=== PATIENT | female | born 1955 | race Hispanic/Latino ===

== ENCOUNTER 2021-02-11 05:28 | Day surgery (SDC) | payer MEDICARE ==
[2021-02-10 15:29] LABS: BASOPHILS % (AUTO) 0.8 % (0.0-5.0); EOSINOPHILS % (AUTO) 1.1 % (0.0-8.0); HEMATOCRIT 41.3 % (36-48); LYMPHOCYTES % (AUTO) 33.4 % (21.0-51.0); MEAN CORPUSCULAR HEMOGLOBIN 29.4 pg (27.0-33.0); MEAN CORPUSCULAR HGB CONC 33.9 g/dL (32.0-36.0); MEAN CORPUSCULAR VOLUME 86.6 fL (79-99); MONOCYTES % (AUTO) 6.9 % (3.0-13.0); NEUTROPHILS % (AUTO) 57.4 % (40.0-77.0); PLATELET COUNT (AUTO) 318 K/uL (130-400); RED BLOOD CELL COUNT(AUTO) 4.77 MIL/uL (4.00-5.50); RED CELL DISTRIBUTION WIDTH 13.2 % (11.0-15.5); WHITE BLOOD COUNT (AUTO) 9.1 K/uL (4.8-10.8)
[2021-02-10 15:37] LABS: CREATININE 1.1 mg/dL (0.5-1.5); POTASSIUM 3.8 mmol/L (3.5-5.1)
[2021-02-10 16:25] VITALS: BP 150/77
[2021-02-11] VITALS (16 sets, daily range): BP systolic 104–162; BP diastolic 51–76
[~2021-02-11] VITALS: Ht 157.5 cm; Wt 64.0 kg
[~2021-02-11 05:28] MED LIST: ALBU0.63 IH; LOVA20TA3 PO; MECL-160 PO; MONT10TA32 PO; MV-M1TAB20 PO; OMEG-148 PO
[2021-02-11] MEDS ORDERED: LACTATED RINGERS 1000ML 1,000 ML IV ONE (05:41)
[2021-02-11] MEDS ORDERED: MIDAZOLAM HCL 1 MG/ML 2ML VIAL ONE ×2 (06:51→06:52)
[2021-02-11] MEDS ORDERED: FENTANYL CITRATE PF 50 MCG/1 ML 2ML VIAL ONE (06:59)
[2021-02-11] MEDS ORDERED: PROPOFOL 10 MG/ML 20ML VIAL IV ONE (06:59)
[2021-02-11] MEDS ORDERED: LIDOCAINE HCL MPF 1% 5ML VIAL ONE (06:59)
[2021-02-11] MEDS ORDERED: SUCCINYLCHOLINE 200MG/10ML SYR ONE (06:59)
[2021-02-11] MEDS ORDERED: ROCURONIUM 10MG/1ML SYR 10 MG/ML ML ONE (07:01)
[2021-02-11] MEDS ORDERED: BACITRACIN 28.4 GM OINT TP ONE (07:44)
[2021-02-11] MEDS ORDERED: LACTATED RINGERS 1000ML 1,000 ML IV SCH (08:00)
[2021-02-11] MEDS ORDERED: IPRATROPIUM/ALBUTEROL SULFATE 3 ML SOLUTION IH ONE (08:37)
== END 2021-02-11 09:35 | disposition home or self-care (01) ==
LOC: DAH 05:28
PROVIDERS: ATTEND Obstetrics & Gynecology
DX: N95.0 Postmenopausal bleeding (principal); Z20.822 Contact with and (suspected) exposure to COVID-19; N84.0 Polyp of corpus uteri; N36.2 Urethral caruncle; N95.8 Other specified menopausal and perimenopausal disorders; F41.9 Anxiety disorder, unspecified; J45.909 Unspecified asthma, uncomplicated; E78.5 Hyperlipidemia, unspecified; Z98.51 Tubal ligation status; Z90.49 Acquired absence of other specified parts of digestive tract; Z82.49 Family history of ischemic heart disease and other diseases of the circulatory system; Z80.3 Family history of malignant neoplasm of breast; Z79.899 Other long term (current) drug therapy; Z80.8 Family history of malignant neoplasm of other organs or systems
CPT/HCPCS: 36415; 53265; 58558; 80048; 85025; 86850; 86900; 86901; 87635; 94640; A4215; A4221; A4222; A4223; A4335 ×2; A4351; A4355; C9803; J0330; J2250 ×2; J2704; J3010; J3490; J7030; J7120 ×2

== ENCOUNTER 2021-08-19 05:51 | Observation (INO) | payer MEDICARE ==
[2021-08-18 12:14] LABS: BASOPHILS % (AUTO) 0.5 % (0.0-5.0); EOSINOPHILS % (AUTO) 0.5 % (0.0-8.0); HEMATOCRIT 40.8 % (36-48); LYMPHOCYTES % (AUTO) 22.4 % (21.0-51.0); MEAN CORPUSCULAR HEMOGLOBIN 30.9 pg (27.0-33.0); MEAN CORPUSCULAR HGB CONC 35.3 g/dL (32.0-36.0); MEAN CORPUSCULAR VOLUME 87.6 fL (79-99); MONOCYTES % (AUTO) 4.7 % (3.0-13.0); NEUTROPHILS % (AUTO) 71.5 % (40.0-77.0); PLATELET COUNT (AUTO) 334 K/uL (130-400); RED BLOOD CELL COUNT(AUTO) 4.66 MIL/uL (4.00-5.50); RED CELL DISTRIBUTION WIDTH 13.2 % (11.0-15.5)
[2021-08-18] MEDS: CEFAZOLIN SODIUM 1 GM VIAL IVP SCH (12:30)
[2021-08-18 13:14] VITALS: BP 148/73
[2021-08-19] VITALS (24 sets, daily range): BP systolic 107–137; BP diastolic 51–70
[~2021-08-19] VITALS: Ht 157.5 cm; Wt 64.0 kg
[~2021-08-19 05:51] MED LIST changes: -ALBU0.63 IH; +ALBU90AE IH; +MONT-39 PO; -MONT10TA32 PO; +SYMB8060 IH; +VITA1CAP85 PO
[2021-08-19 06:37] LABS: CREATININE 1.1 mg/dL (0.5-1.5); POTASSIUM 3.5 mmol/L (3.5-5.1)
[2021-08-19] MEDS ORDERED: LACTATED RINGERS 1000ML 1,000 ML IV ONE (06:42)
[2021-08-19] MEDS ORDERED: SUCCINYLCHOLINE 200MG/10ML SYR ONE (08:11)
[2021-08-19] MEDS ORDERED: PROPOFOL 10 MG/ML 20ML VIAL IV ONE (08:11)
[2021-08-19] MEDS ORDERED: LIDOCAINE PF 100MG/5ML (2%) SYRINGE 5ML ONE (08:11)
[2021-08-19] MEDS ORDERED: FENTANYL CITRATE PF 50 MCG/1 ML 2ML VIAL ONE (08:12)
[2021-08-19] MEDS ORDERED: MIDAZOLAM HCL 1 MG/ML 2ML VIAL ONE (08:12)
[2021-08-19] MEDS ORDERED: ROCURONIUM 10MG/1ML SYR 10 MG/ML ML ONE (08:19)
[2021-08-19] MEDS ORDERED: GLYCOPYRROLATE 1 MG/5 ML SYRINGE ONE (08:30)
[2021-08-19] MEDS ORDERED: DEXAMETHASONE SOD PHOSPHATE 10MG/ML 1ML VIAL ONE (08:30)
[2021-08-19] MEDS ORDERED: NEOSTIGMINE 5MG/5ML SYR IV ONE (08:31)
[2021-08-19] MEDS: CEFAZOLIN SODIUM 1 GM VIAL IVP SCH (08:31)
[2021-08-19] MEDS ORDERED: ONDANSETRON 4MG INJ ONE (08:31)
[2021-08-19] MEDS ORDERED: EPHEDRINE SULFATE 50 MG/ML AMPULE ONE (09:00)
[2021-08-19] MEDS: DEXTROSE 5 %-0.45 % NACL 1,000 ML IV PRN ×2 (11:26→19:54)
[2021-08-19] MEDS: MEPERIDINE-PF 75 MG/ML SYG IM PRN ×2 (11:30→20:16)
[2021-08-19] MEDS: PROMETHAZINE HCL 25 MG/ML 1ML AMPULE IM PRN ×2 (11:30→20:16)
[2021-08-19] MEDS ORDERED: PROMETHAZINE HCL 25 MG/ML 1ML AMPULE IM PRN (11:30)
[2021-08-19] MEDS ORDERED: ONDANSETRON 4MG INJ IVP PRN (11:30)
[2021-08-19] MEDS ORDERED: BISACODYL 10 MG SUPP.RECT RC PRN (11:30)
[2021-08-19] MEDS ORDERED: IBUPROFEN 600 MG TABLET PO PRN (11:30)
[2021-08-19] MEDS ORDERED: ACETAMINOPHEN WITH CODEINE 1 TAB TAB PO PRN (11:30)
[2021-08-19] MEDS: SIMETHICONE 80 MG TAB.CHEW PO PRN (20:16)
[2021-08-19] MEDS: DOCUSATE SODIUM 100 MG CAP PO PRN (20:16)
[2021-08-20 03:19] VITALS: BP 128/61
[2021-08-20] MEDS: DEXTROSE 5 %-0.45 % NACL 1,000 ML IV PRN (04:00)
[2021-08-20] MEDS ORDERED: HYDROCODONE/ACETAMINOPHEN 5/325 MG TAB PO PRN (05:30)
[2021-08-20 05:51] LABS: HEMATOCRIT 34.9 % (36-48); MEAN CORPUSCULAR HEMOGLOBIN 30.6 pg (27.0-33.0); MEAN CORPUSCULAR HGB CONC 33.8 g/dL (32.0-36.0); MEAN CORPUSCULAR VOLUME 90.6 fL (79-99); RED BLOOD CELL COUNT(AUTO) 3.85 MIL/uL (4.00-5.50); RED CELL DISTRIBUTION WIDTH 13.2 % (11.0-15.5); WHITE BLOOD COUNT (AUTO) 19.1 K/uL (4.8-10.8)
[2021-08-20 07:13] VITALS: BP 135/60
[2021-08-20] MEDS: SIMETHICONE 80 MG TAB.CHEW PO PRN (08:07)
[2021-08-20] MEDS: DOCUSATE SODIUM 100 MG CAP PO PRN (08:07)
[2021-08-20] MEDS: IBUPROFEN 800 MG TAB PO PRN (08:08)
[2021-08-20 11:21] VITALS: BP 135/62
[2021-08-20 16:36] VITALS: BP 134/56
[2021-08-20 19:24] VITALS: BP 114/65
[2021-08-20 23:02] VITALS: BP 143/77
[2021-08-21 03:10] VITALS: BP 139/78
[2021-08-21] MEDS: IBUPROFEN 800 MG TAB PO PRN (06:11)
[2021-08-21 07:05] VITALS: BP 115/72
[2021-08-21] MEDS: DOCUSATE SODIUM 100 MG CAP PO PRN (08:37)
[2021-08-21] MEDS: SIMETHICONE 80 MG TAB.CHEW PO PRN (08:37)
[2021-08-21 11:25] VITALS: BP 132/76
== END 2021-08-21 13:20 | disposition home or self-care (01) ==
LOC: DAH 05:51 → DAHIP 05:52 → DAH 05:52 → WSH 10:55
PROVIDERS: ADMIT Obstetrics & Gynecology; ATTEND Obstetrics & Gynecology
DX: N95.0 Postmenopausal bleeding (principal); Z20.822 Contact with and (suspected) exposure to COVID-19; N81.2 Incomplete uterovaginal prolapse; R68.89 Other general symptoms and signs; N81.4 Uterovaginal prolapse, unspecified; K46.9 Unspecified abdominal hernia without obstruction or gangrene; J45.909 Unspecified asthma, uncomplicated; E78.5 Hyperlipidemia, unspecified; Z90.49 Acquired absence of other specified parts of digestive tract; Z98.51 Tubal ligation status; Z79.899 Other long term (current) drug therapy; Z98.890 Other specified postprocedural states
CPT/HCPCS: 36415 ×3; 58263; 80048; 85025; 85027; 86850; 86900; 86901; 87635; 93005; 96372; A4215; A4216; A4221; A4222; A4223; A4344; A4351; A4600; A4606; A4663; A6260; C9803; G0378 ×50; J0330; J0690; J1100; J2001; J2175 ×2; J2250; J2405; J2550 ×2; J2704; J2710; J3010; J3490 ×2; J7120 ×2

== ENCOUNTER 2023-09-28 06:36 | Day surgery (SDC) | payer MEDICARE ==
[2023-09-24 14:55] LABS: BASOPHILS # (AUTO) 0.04 K/uL (0.00-0.20); BASOPHILS % (AUTO) 0.3 % (0.0-5.0); EOSINOPHILS # (AUTO) 0.05 K/uL (0.00-0.70); EOSINOPHILS % (AUTO) 0.3 % (0.0-8.0); HEMATOCRIT 38.6 % (36-48); IMMATURE GRANULOCYTE ABSOLUTE 0.08 K/uL (0-1); LYMPHOCYTES # (AUTO) 3.3 K/uL (1.0-4.8); LYMPHOCYTES % (AUTO) 22.6 % (21.0-51.0); MEAN CORPUSCULAR HEMOGLOBIN 29.9 pg (27.0-33.0); MEAN CORPUSCULAR HGB CONC 34.2 g/dL (32.0-36.0); MEAN CORPUSCULAR VOLUME 87.5 fL (79-99); MONOCYTES # (AUTO) 0.9 K/uL (0.1-1.0); MONOCYTES % (AUTO) 6.4 % (3.0-13.0); NEUTROPHILS # (AUTO) 10.3 K/uL (1.8-7.7); NEUTROPHILS % (AUTO) 69.9 % (40.0-77.0); PLATELET COUNT (AUTO) 280 K/uL (130-400); RED BLOOD CELL COUNT(AUTO) 4.41 MIL/uL (4.00-5.50); RED CELL DISTRIBUTION WIDTH 13.9 % (11.0-15.5); WHITE BLOOD COUNT (AUTO) 14.7 K/uL (4.8-10.8)
[2023-09-24 15:04] VITALS: BP 154/72; PULSE 65; RESP 15
[2023-09-24 15:05] LABS: INR < 0.93 (0.85-1.15); PROTHROMBIN TIME 10.3 SEC (9.6-11.6)
[2023-09-24 15:07] LABS: PARTIAL THROMBOPLASTIN TIME 23.2 SEC (26.3-35.5)
[2023-09-24 15:10] LABS: ALBUMIN 3.3 g/dL (3.5-5.0); BILIRUBIN,TOTAL 0.3 mg/dL (0.2-1.0); CREATININE 1.4 mg/dL (0.5-1.5); POTASSIUM 4.1 mmol/L (3.5-5.1); TOTAL PROTEIN, SERUM 6.9 g/dL (6.0-8.3)
[~2023-09-28] VITALS: Ht 157.5 cm; Wt 63.5 kg
[2023-09-28] VITALS (19 sets, daily range): BP systolic 79–132; BP diastolic 41–79; PULSE 58–96; RESP 15–21
[~2023-09-28 06:36] MED LIST changes: -ALBU90AE IH; +ALEN70TA80 PO; +BUDE10.26 IH; +GABA300C PO; +IPRAHFA IH; -LOVA20TA3 PO; -MECL-160 PO; +MECL-302 PO; -MV-M1TAB20 PO; -OMEG-148 PO; +OMEP40CA21 PO; +ROSU20TA73 PO; -SYMB8060 IH; -VITA1CAP85 PO
[2023-09-28 06:52] LABS: BASOPHILS # (AUTO) 0.06 K/uL (0.00-0.20); BASOPHILS % (AUTO) 0.5 % (0.0-5.0); EOSINOPHILS # (AUTO) 0.08 K/uL (0.00-0.70); EOSINOPHILS % (AUTO) 0.7 % (0.0-8.0); HEMATOCRIT 40.7 % (36-48); IMMATURE GRANULOCYTE ABSOLUTE 0.07 K/uL (0-1); LYMPHOCYTES % (AUTO) 17.4 % (21.0-51.0); MEAN CORPUSCULAR HEMOGLOBIN 30.7 pg (27.0-33.0); MEAN CORPUSCULAR HGB CONC 34.4 g/dL (32.0-36.0); MEAN CORPUSCULAR VOLUME 89.3 fL (79-99); MONOCYTES # (AUTO) 0.9 K/uL (0.1-1.0); NEUTROPHILS # (AUTO) 8.1 K/uL (1.8-7.7); NEUTROPHILS % (AUTO) 72.8 % (40.0-77.0); PLATELET COUNT (AUTO) 232 K/uL (130-400); RED BLOOD CELL COUNT(AUTO) 4.56 MIL/uL (4.00-5.50); WHITE BLOOD COUNT (AUTO) 11.2 K/uL (4.8-10.8)
[2023-09-28] MEDS ORDERED: MEROPENEM 1 GM VIAL ONE (06:52)
[2023-09-28] MEDS ORDERED: LACTATED RINGERS 1000ML 1,000 ML IV ONE (06:52)
[2023-09-28] MEDS ORDERED: PROPOFOL 10 MG/ML 20ML VIAL IV ONE (07:11)
[2023-09-28] MEDS ORDERED: FENTANYL CITRATE PF 50 MCG/1 ML 2ML VIAL ONE (07:12)
[2023-09-28] MEDS ORDERED: ROCURONIUM BROMIDE 10MG/1ML 5ML VL ONE (07:12)
[2023-09-28] MEDS ORDERED: MIDAZOLAM HCL 1 MG/ML 2ML VIAL ONE (07:14)
[2023-09-28] MEDS ORDERED: ONDANSETRON 4MG INJ ONE ×2 (07:14→08:50)
[2023-09-28] MEDS ORDERED: BUPIVACAINE/PF 0.25% 30ML VIAL IJ ONE (08:03)
[2023-09-28] MEDS ORDERED: LIDOCAINE 1%-EPI 1:100,000 20 ML VIAL ONE (08:03)
[2023-09-28] MEDS ORDERED: GLYCOPYRROLATE 0.2 MG/ML 5 ML VIAL ONE (08:30)
[2023-09-28] MEDS ORDERED: MEPERIDINE-PF 25 MG/ML SYG ONE (08:50)
[2023-09-28] MEDS ORDERED: IPRATROPIUM/ALBUTEROL SULFATE 3 ML SOLUTION IH ONE ×2 (09:26→10:00)
== END 2023-09-28 12:35 | disposition home or self-care (01) ==
LOC: DAH 06:36
PROVIDERS: ATTEND Surgery
DX: K64.2 Third degree hemorrhoids (principal); K62.89 Other specified diseases of anus and rectum; K21.9 Gastro-esophageal reflux disease without esophagitis; J45.909 Unspecified asthma, uncomplicated; I10 Essential (primary) hypertension; M81.0 Age-related osteoporosis without current pathological fracture; Z86.73 Personal history of transient ischemic attack (TIA), and cerebral infarction without residual deficits; Z90.710 Acquired absence of both cervix and uterus; Z90.49 Acquired absence of other specified parts of digestive tract; Z86.010 Personal history of colon polyps; Z98.51 Tubal ligation status; Z98.890 Other specified postprocedural states; Z79.01 Long term (current) use of anticoagulants; Z79.899 Other long term (current) drug therapy
CPT/HCPCS: 80053; 85025 ×2; 85610; 85730; 36415 ×2; 93005; 45541; 46946; A6260; A4663; J7120 ×2; A4344; J3010; J3490 ×3; J0665; J2250; J2704; J2405 ×2; J2175; J2185; A4649; A4930; A4215; A4223; A4222; A4221

== ENCOUNTER → 2024-02-15 | Outpatient (CLI) | payer MEDICARE | END | disposition home or self-care (01) | LOC: SHCH 13:34 | PROVIDERS: ATTEND Internal Medicine Cardiovascular Disease | DX: I87.2 Venous insufficiency (chronic) (peripheral) (principal); R00.2 Palpitations; I87.1 Compression of vein; E78.5 Hyperlipidemia, unspecified; Z79.899 Other long term (current) drug therapy | CPT/HCPCS: 93970 ==

== ENCOUNTER → 2024-12-19 | Outpatient (CLI) | payer MEDICARE ==
[~2024-12-19] MED LIST changes: -ROSU20TA73 PO; +ROSU20TA98 PO
--- NOTE | 2024-12-19 11:17 | HMCSR ---
APPROVED REPORT Laterality: Bilateral Indications i73.9 VELOCITY AND DOPPLER WAVEFORM ANALYSIS LEVEL VIAL MARKER (R) 158.7cm/sec, Biphasic, LEVEL VIAL MARKER (L) 131.1cm/sec, Biphasic, Prof Fem Art. (R) 69.0cm/sec, Biphasic, Prof Fem Art. (L) 47.6cm/sec, Biphasic, Fem Art Prox. (R) 114.6cm/sec, Biphasic, Fem Art Prox. (L) 84.3cm/sec, Biphasic, Fem Art Mid. (R) 84.8cm/sec, Biphasic, Fem Art Mid. (L) 82.5cm/sec, Biphasic, Fem Art Dist (R) 82.4cm/sec, Biphasic, Fem Art Dist. (L) 66.9cm/sec, Biphasic, Pop Art(AK) (R) 62.8cm/sec, Biphasic, Pop Art (AK) (L) 83.4cm/sec, Biphasic, Pop Art (Fossa)(R) 64.4cm/sec, Biphasic, Pop Art (Fossa) (L) 81.6cm/sec, Biphasic, Pop Art(BK) (R) 103.0cm/sec, Biphasic, Pop Art (BK) (L) 80.8cm/sec, Biphasic, INDUSTRIAL PLANT CUSTODIAN Prox. (R) 86.8cm/sec, Biphasic, INDUSTRIAL [employer] CUSTODIAN Prox. (L) 67.7cm/sec, Biphasic, INDUSTRIAL [employer]ANT CUSTODIAN Mid. (R) 57.1cm/sec, Biphasic, INDUSTRIAL PLANT CUSTODIAN Mid. (L) 59.5cm/sec, Biphasic, INDUSTRIAL PLANT CUSTODIAN Dist. (R) 62.0cm/sec, Biphasic, INDUSTRIAL PLANT CUSTODIAN Dist. (L) 48.9cm/sec, Biphasic, Per Art Prox. (R) 42.4cm/sec, Biphasic, Per Art Prox. (L) 42.8cm/sec, Biphasic, Per Art Mid. (R) 41.6cm/sec, Biphasic, Per Art Mid. (L) 34.5cm/sec, Biphasic, Per Art Dist. (R) 47.3cm/sec, Biphasic, Per Art Dist. (L) 45.6cm/sec, Biphasic, ILSA Prox. (R) 99.6cm/sec, Biphasic, ILSA Prox. (L) 92.6cm/sec, Biphasic, ILSA Mid. (R) 77.6cm/sec, Biphasic ILSA Mid. (L) 59.0cm/sec, Biphasic, ILSA Dist. (R) 79.9cm/sec, Biphasic, ILAS Dist. (L) 72.9cm/sec, Biphasic, Technologist Impression No evidence of significant arterial insufficiency of bilateral lower extremities. Multiphasic waveforms in the bilateral lower extremities. Conclusion No evidence of significant arterial insufficiency of bilateral lower extremities. Conclusion No evidence of significant arterial insufficiency of bilateral lower extremities.
--- NOTE | 2024-12-19 11:18 | HMCSR ---
APPROVED REPORT Bilateral Lower Extremity Venous Study for DVT., Venous Competence. Indications i87.1,i87.2 Vein Imaging CFV (R): Normal flow, augmentation and compression. No evidence of DVT. 10.8mm 1000ms of reflux. SFJ (R): Normal flow, augmentation and compression. No evidence of DVT. FEM (R): Normal flow, augmentation and compression. No evidence of DVT. POP (R): Normal flow, augmentation and compression. No evidence of DVT. DFV (R): Normal flow, augmentation and compression. No evidence of DVT. PTV (R): Normal flow, augmentation and compression. No evidence of DVT. Peroneals (R): Normal flow, augmentation and compression. No evidence of DVT. CFV (L): STENT: Normal flow, augmentation and compression. No evidence of DVT. 12.6mm 1150ms of reflux. SFJ (L): Normal flow, augmentation and compression. No evidence of DVT. FEM (L): Normal flow, augmentation and compression. No evidence of DVT. POP (L): Normal flow, augmentation and compression. No evidence of DVT. DFV (L): Normal flow, augmentation and compression. No evidence of DVT. PTV (L): Normal flow, augmentation and compression. No evidence of DVT. Peroneals (L): Normal flow, augmentation and compression. No evidence of DVT. Technologist Impression Deep veins of the bilateral lower extremiteis appear patent and compressible without thrombus. Deep venous reflux >1.0 sec in the RCFV and LCFV. Superficial venous insufficiency > 0.5 sec in the LGSV. RGSV junction 5.5mm 250ms thigh 1.8mm 0.0ms knee 2.5mm 0.0ms calf 1.3mm 0.0ms RSSV prox 1.7mm 0.0ms mid 1.5mm 0.0ms LGSV junction 6.4mm 1575ms thigh 1.8mm 1783ms knee 2.7mm 0.0ms calf 1.6mm 0.0ms LSSV prox 2.7mm 0.0ms mid 2.0mm 0.0ms Conclusion Deep venous reflux >1.0 sec in the RCFV and LCFV. Superficial venous insufficiency > 0.5 sec in the LGSV. Findings consistent with possible iliac vein compression Consider formal venography with intravascular ultrasound if clinically indicated No DVT Conclusion Deep venous reflux >1.0 sec in the RCFV and LCFV. Superficial venous insufficiency > 0.5 sec in the LGSV. Findings consistent with possible iliac vein compression Consider formal venography with intravascular ultrasound if clinically indicated No DVT
--- NOTE | 2024-12-19 14:27 | HMCSR ---
APPROVED REPORT EXAM: Two-dimensional and M-mode echocardiogram with Doppler and color Doppler. INDICATION ICD: R01.1 Cardiac murmur, unspecified 2D Dimensions RVDd3.1 cmLVEF(%)54.1 (>50%)LVED Vol(simp.)69.0 mL IVSd0.8 (0.7-1.1cm)FS(%)28 %LVES Vol(simp.)31.0 mL LVDd4.3 (3.8-5.6cm)Ao Root(2D)2.6 (2.0-3.7cm)LVEF(%, simp.)55 % PWd0.8 (0.7-1.1cm)LVOT diam1.8 (1.8-2.4cm)LA ESV INDEX (BP)17.43 mL/m2 LVDs3.1 (2.5-4.0cm)IVC diam1.7 cm Aortic Valve AoV Vmax1.6 m/Mio Peak GR10.7 mmHgLVOT Vmax1.0 m/s AoV VTI0.4 mAo Mean GR5.4 mmHgLVOT VTI0.23 m LILLY (VMAX)1.6 cm2AVA (VTI) 1.6 cm2 Mitral Valve MV E Vmax74.9 cm/sDECEL Fjwd618 ms MV A Cues286.9 cm/sP 1/2 T62 ms E/A ratio0.6MVA (PHT)3.6 cm2 TDI E/E' Gcdhqi75.3E/E' Lateral9.0 Pulmonary Valve PV Vmax0.8 m/sPV VTI0.21 mPV Mean GR2 mmHg PV Peak GR2.8 mmHg Tricuspid Valve RAP (EST) 8 mmHg Left Ventricle Left ventricular cavity size is normal. There is normal LV segmental wall motion. There is normal lef t ventricular wall thickness. LVEF is 50-55%. Grade 1 diastolic dysfunction Right Ventricle The right ventricle is normal size. The right ventricular systolic function is normal. Atria The left atrium size is normal. The right atrium size is normal. Aortic Valve Aortic valve is trileaflet. Aortic valve leaflets are sclerotic. Trace aortic regurgitation. Calculat ed aortic valve area is 1.6 cm2 with maximum pressure gradient of 10.7 mmHg and mean pressure gradien t of 5.4 mmHg. Mitral Valve The mitral valve is mildly thickened. Mitral regurgitation is trace. There is no mitral valve stenosi s. Tricuspid Valve The tricuspid valve leaflets appear normal. There is trace tricuspid regurgitation. Pulmonic Valve The pulmonic valve leaflets are thin and pliable; valve motion is normal. There is trace pulmonic john paul vular regurgitation. Great Vessels The aortic root is normal in size. The IVC is normal in size and collapses >50% with inspiration. Pericardium No pericardial effusion. Conclusion LVEF is 50-55%. There is normal LV segmental wall motion. Grade 1 diastolic dysfunction Calculated aortic valve area is 1.6 cm2 with maximum pressure gradient of 10.7 mmHg and mean pressure gradient of 5.4 mmHg. The aortic root is normal in size. The IVC is normal in size and collapses >50% with inspiration.
== END | disposition home or self-care (01) ==
LOC: SHCH 08:50
PROVIDERS: ATTEND Internal Medicine Cardiovascular Disease
DX: I08.0 Rheumatic disorders of both mitral and aortic valves (principal); I87.8 Other specified disorders of veins; R01.1 Cardiac murmur, unspecified; I73.9 Peripheral vascular disease, unspecified; I87.2 Venous insufficiency (chronic) (peripheral); I87.1 Compression of vein
CPT/HCPCS: 93306; 93925; 93970